=== PATIENT | female | born 1990 | race Caucasian/White ===

== ENCOUNTER 2017-08-05 10:35 | Emergency (ER) | payer MEDICAID ==
[2017-08-05] MEDS: ACETAMINOPHEN 500 MG TAB PO (12:36)
[2017-08-05] MEDS: CEPHALEXIN 500 MG CAP PO (12:36)
== END 2017-08-05 12:51 | disposition home or self-care (01) ==
LOC: FTE 10:35
DX: N61.0 Mastitis without abscess (principal)
CPT/HCPCS: 99283; Z7502